=== PATIENT | male | born 1945 | race Caucasian/White ===

== ENCOUNTER 2020-01-03 08:48 | Day surgery (SDC) | payer MEDICARE, OTHER ==
[2020-01-03] MEDS ORDERED: Lidocaine 2% 5 ML SDV INJECT ONE (08:49)
[2020-01-03] MEDS ORDERED: Propofol 200 MG/20 ML SDV IV ONE (08:49)
[2020-01-03] MEDS ORDERED: Sodium Chloride 0.9% 10 ML Syringe FLUSH PRN (09:00)
[2020-01-03] MEDS ORDERED: Lactated Ringers 1,000 ML IV SCH (09:00)
--- NOTE | 2020-01-03 10:31 | PCM.OPNOTE ---
- General Post-Op/Procedure Note Date of Surgery/Procedure: 01/03/20 Operative Procedure(s): egd with biopsy Findings: hiatal hernia esophagitis Pre Op Diagnosis: dysphagia Post-Op Diagnosis: hiatal hernia. esophagitis Anesthesia Technique: MAC Primary Surgeon: Dax Ortega Anesthesia Provider: Abhinav Verdugo Pathology: distal esophagus Complications: None Condition: Good Free Text/Narrative:: see dictation
--- NOTE | 2020-01-04 07:56 | OR ---
DATE OF OPERATION: 01/03/2020 SURGEON: Dax Ortega MD PROCEDURE PERFORMED: Esophagogastroduodenoscopy with cold forceps biopsy. PREOPERATIVE DIAGNOSIS: History of dysphagia. POSTOPERATIVE DIAGNOSES: Hiatal hernia and esophagitis. INDICATIONS FOR PROCEDURE: A 74-year-old white male, referred with the above- mentioned complaints. He was offered and accepted an EGD as part of his workup. DESCRIPTION OF OPERATION: After an excellent IV sedation was administered, bite block was inserted. Flexible endoscope was passed without difficulty down the patient's esophagus into the stomach. Stomach was insufflated. Scope passed through the pylorus to the second portion of duodenum and slowly withdrawn. The following findings were noted: Duodenum and stomach were unremarkable. On retroflexing the scope, there was evidence of a hiatal hernia. GE junction, however, measured at 40 cm, but there was some mild irritation noted in this area. Multiple biopsies were taken and submitted in one container. The remainder of the esophageal exam was unremarkable. The patient tolerated the procedure well, was taken to Recovery in good condition. Results will be sent by letter. /[id number] /MODL
== END 2020-01-03 11:15 | disposition home or self-care (01) ==
LOC: FB.SDS 08:48
PROVIDERS: ATTEND Surgery
DX: K20.9 Esophagitis, unspecified (principal); K44.9 Diaphragmatic hernia without obstruction or gangrene; E66.9 Obesity, unspecified; I10 Essential (primary) hypertension; E78.2 Mixed hyperlipidemia; Z79.899 Other long term (current) drug therapy; Z79.82 Long term (current) use of aspirin; Z68.32 Body mass index [BMI] 32.0-32.9, adult
CPT/HCPCS: 00731; 43239; J2001; J2704; J7120; 88305; 88313